=== PATIENT | female | born 1965 | race Caucasian/White ===

== ENCOUNTER 2022-10-11 04:46 | Emergency (ER) | payer BC ==
[~2022-10-11] VITALS: Ht 175.3 cm; Wt 69.8 kg
[~2022-10-11 04:46] MED LIST: CYCL10 PO; HYDACE5 PO; NAPR550 PO
[2022-10-11] MEDS ORDERED: MELO7.5 PO (06:18)
[2022-10-11] MEDS ORDERED: OXYC5 PO (06:30)
[2022-10-11 07:04] VITALS: BP 157/84
== END 2022-10-11 06:47 | disposition home or self-care (01) ==
LOC: ER 04:46
DX: S82.62XA Displaced fracture of lateral malleolus of left fibula, initial encounter for closed fracture (principal); F17.200 Nicotine dependence, unspecified, uncomplicated; W01.0XXA Fall on same level from slipping, tripping and stumbling without subsequent striking against object, initial encounter
CPT/HCPCS: 73610; A9270